=== PATIENT | male | born 1990 | race Caucasian/White ===

== ENCOUNTER 2022-03-20 13:57 | Emergency (ER) | payer BC ==
[2022-03-20 14:33] LABS: #Basophils 0.1 thou/uL (0.0-0.2); #Eosinphils 0.2 thou/uL (0.0-0.7); #Lymphocytes 2.3 thou/uL (1.20-3.40); #Monocytes 0.6 thou/uL (0.11-0.59); %Eosinophils 2.3 % (0.0-10.0); %Lymphocytes 32.4 % (21.0-51.0); %Monocytes 7.8 % (0.0-10.0); %Neutrophils 56.4 % (42.0-75.0); Hemoglobin 14.2 g/dL (14.0-18.0); Mean Corpuscular HGB CONC 31.7 g/dL (32.0-36.0); Mean Corpuscular Volume 97.8 fL (78.0-98.0); Mean Platelet Volume 8.1 fL (7.4-10.4); Platelet Count 191 thou/uL (130-400); RBC Distribution Width 12.4 % (11.5-14.5); Red Blood Cell (RBC) Count 4.57 mill/uL (4.70-6.10); White Blood Cell (WBC) Count 7.1 thou/uL (4.8-10.8)
[2022-03-20 14:51] LABS: ALT (SGPT) 47 U/L (8-55); AST (SGOT) 24 U/L (5-34); Albumin 4.4 g/dL (3.5-5.0); Alkaline Phosphatase 55 U/L (40-110); Anion Gap 16 mmol/L (10-20); BUN (Urea Nitrogen) 18 mg/dL (8.9-20.6); Bilirubin, Total 0.3 mg/dL (0.2-1.2); CK (CPK) 177 U/L (30-200); Calc. Creatinine Clearance 0 mL/min (70-130); Calcium 9.3 mg/dL (7.8-10.44); Carbon Dioxide 24 mmol/L (22-29); Chloride 104 mmol/L (98-107); Estimated GFR 116; Globulin 2.5 g/dL (2.4-3.5); Glucose 106 mg/dL (70-105); Lipase 33 U/L (8-78); Potassium 3.6 mmol/L (3.5-5.1); Protein, Total 6.9 g/dL (6.0-8.3); Sodium 140 mmol/L (136-145)
[2022-03-20] MEDS ORDERED: Mag-Al Plus 1200 MG/1200 MG/120 MG/30 ML UDCUP ONE (14:55)
[2022-03-20] MEDS ORDERED: Aspirin Chewable 81 MG TAB ONE (14:55)
[2022-03-20] MEDS ORDERED: Lidocaine Viscous Sol 2% 15 ml UD Cup ONE (14:55)
== END 2022-03-20 15:30 | disposition home or self-care (01) ==
LOC: NAV ERS 13:57
DX: R07.9 Chest pain, unspecified (principal)
CPT/HCPCS: 36415; 71045; 80053; 82550; 83690; 84484; 85025; 93005

== ENCOUNTER 2022-09-17 23:18 | Emergency (ER) | payer BC ==
[2022-09-17] MEDS ORDERED: Dexamethasone 4 MG TAB ONE (23:46)
[2022-09-17] MEDS ORDERED: Ibuprofen 800 MG TAB ONE (23:46)
[2022-09-17] MEDS ORDERED: Ibuprofen 200 MG TAB ONE (23:47)
== END 2022-09-17 23:55 | disposition home or self-care (01) ==
LOC: NAV ERS 23:18
DX: H66.3X3 Other chronic suppurative otitis media, bilateral (principal); H72.91 Unspecified perforation of tympanic membrane, right ear
CPT/HCPCS: 99282; J8540